=== PATIENT | female | born 1955 | race Caucasian/White ===

== ENCOUNTER → 2019-11-04 14:56 | Outpatient (BNVA) | payer MEDICARE, BC, SELFPAY | PROVIDERS: Family Provider Internal Medicine; PCP Nurse Practitioner; Visit Provider Nurse Practitioner | DX: E11.65 Type 2 diabetes mellitus with hyperglycemia (principal); Z79.4 Long term (current) use of insulin; K21.9 Gastro-esophageal reflux disease without esophagitis; L29.9 Pruritus, unspecified; R82.998 Other abnormal findings in urine | CPT/HCPCS: 80053; 81001; 83036; 84443; 87086 ==

== ENCOUNTER → 2020-03-12 09:20 | Outpatient (BNVA) | payer MEDICARE, BC, SELFPAY | PROVIDERS: Family Provider Internal Medicine; PCP Nurse Practitioner; Visit Provider Nurse Practitioner | DX: E11.65 Type 2 diabetes mellitus with hyperglycemia (principal); K21.9 Gastro-esophageal reflux disease without esophagitis; Z79.4 Long term (current) use of insulin; Z11.59 Encounter for screening for other viral diseases | CPT/HCPCS: 80053; 80061; 81000; 81003; 82044; 83036; 84443; 86803 ==

== ENCOUNTER 2020-04-06 08:42 | Outpatient (CLI) | payer MEDICARE, BC, SELFPAY ==
--- NOTE | 2020-04-06 08:53 | USCV_ITS ---
Cyndy Ly Age: 65 Gender: F : 1955 Exam Date: 04/06/2020 09:00 Ordering Phys: Sheryl Beckett Technologist: NANETTE BRANHAM Exam Location: [facility] [place] Indication: AORTA SCREENING HISTORY: Diameter (cm) AP x Transverse x Length Velocity (cm/s) Waveform Prox Aorta: 2.13 x 2.04 x 49.20 Mid Aorta: 1.47 x 1.80 x 58.00 Distal Aorta: 1.35 x 1.45 x 33.10 Right Iliac Prox: 0.73 x 0.97 x 65.40 Left Iliac Prox: 0.82 x 0.85 x 55.60 Stent Prox Landing x x Aneurysmal Sac Max x x Lt Lat Sac Dim Rt Lat Sac Dim Stent Dist Landing x x Right Iliac Stent x x Left Iliac Stent x x Right Renal Art Left Renal Art FINDINGS: CONCLUSIONS No evidence of abdominal aortic or bilateral iliac aneurysm. Chase De Leon MD (Electronically Signed) Final Date: 06 April 2020 09:54 S
--- NOTE | 2020-04-06 10:55 | XR_ITS ---
WS: [id number] DEXA (DUAL ENERGY X-RAY ABSORPTIOMETRY) Bone mineral density was performed using a [employer] machine. HISTORY: None. COMPARISON: None available. Lumbar spine BMD (L1-L4): 1.040 g/cm2 T score: -1.2 Z score: 0.1 Total hip BMD: Left: 0.892 g/cm2. T score: -0.9 Z score: 0.1 Right: 0.926 g/cm2. T score: -0.6 Z score: 0.3 10 year probability of a major osteoporotic fracture is 16%. XR/XR DEXA axial skeleton* [id number] IMPRESSION: OSTEOPENIA based upon the WHO classification for females.
== END 2020-04-06 08:43 | disposition home or self-care (01) ==
LOC: RAD 08:49
PROVIDERS: PCP Nurse Practitioner; Visit Provider Nurse Practitioner
DX: Z13.820 Encounter for screening for osteoporosis (principal); Z13.89 Encounter for screening for other disorder; M85.89 Other specified disorders of bone density and structure, multiple sites
CPT/HCPCS: 76706; 77080

== ENCOUNTER → 2020-06-01 09:22 | Outpatient (BNVA) | payer BC, MEDICARE, SELFPAY | PROVIDERS: PCP Nurse Practitioner; Visit Provider Nurse Practitioner Family | DX: Z11.59 Encounter for screening for other viral diseases (principal); J06.9 Acute upper respiratory infection, unspecified | CPT/HCPCS: 87635 ==

== ENCOUNTER → 2020-06-11 16:08 | Outpatient (BNVA) | payer BC, MEDICARE, SELFPAY | PROVIDERS: PCP Nurse Practitioner; Visit Provider Nurse Practitioner | DX: E11.65 Type 2 diabetes mellitus with hyperglycemia (principal); Z79.4 Long term (current) use of insulin; K21.9 Gastro-esophageal reflux disease without esophagitis | CPT/HCPCS: 80053; 83036 ==

== ENCOUNTER → 2020-08-24 14:47 | Outpatient (BNVA) | payer MEDICARE, BC, SELFPAY | PROVIDERS: PCP Nurse Practitioner; Visit Provider Nurse Practitioner | DX: E11.65 Type 2 diabetes mellitus with hyperglycemia (principal); Z79.4 Long term (current) use of insulin; K21.9 Gastro-esophageal reflux disease without esophagitis; H93.13 Tinnitus, bilateral | CPT/HCPCS: 80053; 83036 ==

== ENCOUNTER → 2020-11-16 13:59 | Outpatient (BNVA) | payer MEDICARE, BC, SELFPAY | PROVIDERS: PCP Nurse Practitioner; Visit Provider Nurse Practitioner Family | DX: E11.65 Type 2 diabetes mellitus with hyperglycemia (principal); Z79.4 Long term (current) use of insulin; K21.9 Gastro-esophageal reflux disease without esophagitis; R13.10 Dysphagia, unspecified; Z68.25 Body mass index [BMI] 25.0-25.9, adult | CPT/HCPCS: 80053; 80061; 83036; 85025 ==

== ENCOUNTER 2020-12-11 11:09 | Outpatient (CLI) | payer MEDICARE, BC, SELFPAY ==
--- NOTE | 2020-12-11 11:30 | FL_ITS ---
WS: [id number] MODIFIED BARIUM SWALLOW TECHNIQUE: Modified barium swallow with speech therapy using multiple consistencies. FLUOROSCOPY TIME: 2.8 minutes. CLINICAL INFORMATION: Dysphagia COMPARISON: None. FINDINGS: Multiple consistencies utilized. No evidence of aspiration or penetration. Mild pooling in the vallec anju which cleared with additional swallows. No difficulties with the barium tablet. Mild to moderate esophageal dysmotility is visualized. FL/FL barium swallow modifd [id number] IMPRESSION: 1. No evidence of aspiration or penetration. 2. Mild to moderate esophageal dysmotility is visualized in the thoracic esoph raffi. This can be further evaluated with esophagram
== END 2020-12-11 11:10 | disposition home or self-care (01) ==
LOC: RAD 11:15
PROVIDERS: PCP Nurse Practitioner; Visit Provider Otolaryngology
DX: R13.10 Dysphagia, unspecified (principal)
CPT/HCPCS: 74230; 92611

== ENCOUNTER → 2021-02-16 12:07 | Outpatient (BNVA) | payer MEDICARE, BC, SELFPAY | PROVIDERS: PCP Nurse Practitioner; Visit Provider Nurse Practitioner | DX: E11.65 Type 2 diabetes mellitus with hyperglycemia (principal); Z79.4 Long term (current) use of insulin; K21.9 Gastro-esophageal reflux disease without esophagitis; R41.3 Other amnesia | CPT/HCPCS: 80053; 81000; 83036; 84443 ==

== ENCOUNTER 2021-02-17 16:15 | Outpatient (CLI) | payer MEDICARE, BC, SELFPAY ==
--- NOTE | 2021-02-17 16:45 | MR_ITS ---
WS: [id number] MRI BRAIN WITHOUT CONTRAST HISTORY: R41.3 - Other amnesia COMPARISON: None available. TECHNIQUE: Diffusion imaging, multiplanar T1, T2 and FLAIR imaging obtained. No evidence for acute infarct or hemorrhage. Mike-white matter differentiation is normal. Very mild atrophy and mild chronic microvascular ischemic disease. There are a few scattered T2 and F LAIR signal hyperintensities in subcortical white matter. No abnormality in the ananth or infratentoria l brain. No prior infarct. No hemorrhage. Ventricles and extra-axial spaces are normal. No inferior displacement of cerebellar tonsils. The sella turcica and pituitary gland are unremarkabl e. Posterior fossa is also unremarkable. Dural venous sinuses and [place] demonstrate no abnormality on this unenhanced studies. Paranasal sinuses: Clear. Mastoid air cells: Normal. Calvarium and scalp: Intact. MR/MR head wo con* [id number] IMPRESSION: 1. No acute infarct, hemorrhage or mass. 2. Mild atrophy and mild chronic microvascular ischemic disease. No prior infa rcts.
== END 2021-02-17 16:16 | disposition home or self-care (01) ==
PROVIDERS: PCP Nurse Practitioner; Visit Provider Nurse Practitioner
DX: R41.3 Other amnesia (principal); G31.9 Degenerative disease of nervous system, unspecified; I67.82 Cerebral ischemia
CPT/HCPCS: 70551

== ENCOUNTER → 2021-05-27 09:28 | Outpatient (BNVA) | payer MEDICARE, BC, SELFPAY | PROVIDERS: PCP Nurse Practitioner; Visit Provider Nurse Practitioner | DX: E11.65 Type 2 diabetes mellitus with hyperglycemia (principal); Z79.4 Long term (current) use of insulin | CPT/HCPCS: 80053; 81000; 83036; 85025 ==

== ENCOUNTER → 2021-08-25 11:45 | Outpatient (BNVA) | payer MEDICARE, BC, SELFPAY | PROVIDERS: PCP Nurse Practitioner; Visit Provider Nurse Practitioner | DX: E11.65 Type 2 diabetes mellitus with hyperglycemia (principal); Z79.4 Long term (current) use of insulin; K21.9 Gastro-esophageal reflux disease without esophagitis; Z79.899 Other long term (current) drug therapy | CPT/HCPCS: 80053; 80061; 81000; 83036; 85025 ==

== ENCOUNTER → 2021-11-11 15:21 | Outpatient (BNVA) | payer MEDICARE, SELFPAY | PROVIDERS: PCP Nurse Practitioner; Visit Provider Nurse Practitioner | DX: E11.65 Type 2 diabetes mellitus with hyperglycemia (principal); Z79.4 Long term (current) use of insulin | CPT/HCPCS: 80053; 81000; 83036 ==

== ENCOUNTER → 2022-02-09 11:16 | Outpatient (BNVA) | payer MEDICARE, SELFPAY | PROVIDERS: PCP Nurse Practitioner; Visit Provider Nurse Practitioner | DX: E11.65 Type 2 diabetes mellitus with hyperglycemia (principal); K21.9 Gastro-esophageal reflux disease without esophagitis; Z12.39 Encounter for other screening for malignant neoplasm of breast; Z68.25 Body mass index [BMI] 25.0-25.9, adult; Z79.4 Long term (current) use of insulin | CPT/HCPCS: 80053; 80061; 81000; 83036; 84443; 85025 ==

== ENCOUNTER → 2022-05-04 09:45 | Outpatient (BNVA) | payer MEDICARE, SELFPAY | PROVIDERS: PCP Nurse Practitioner; Visit Provider Nurse Practitioner Family | DX: J02.9 Acute pharyngitis, unspecified (principal); Z11.52 Encounter for screening for COVID-19; U07.1 COVID-19 | CPT/HCPCS: 87071; 87426; 87880 ==

== ENCOUNTER → 2022-05-11 10:10 | Outpatient (BNVA) | payer MEDICARE, SELFPAY | PROVIDERS: PCP Nurse Practitioner; Visit Provider Nurse Practitioner | DX: E11.65 Type 2 diabetes mellitus with hyperglycemia (principal); Z79.4 Long term (current) use of insulin; K21.9 Gastro-esophageal reflux disease without esophagitis | CPT/HCPCS: 80053; 81003; 83036; 85025; 87077; 87086; 87184 ==

== ENCOUNTER → 2022-08-08 09:18 | Outpatient (BNVA) | payer MEDICARE, SELFPAY | PROVIDERS: PCP Nurse Practitioner; Visit Provider Nurse Practitioner | DX: E11.65 Type 2 diabetes mellitus with hyperglycemia (principal); Z79.4 Long term (current) use of insulin; K21.9 Gastro-esophageal reflux disease without esophagitis | CPT/HCPCS: 80053; 80061; 81000; 83036 ==

== ENCOUNTER → 2022-10-24 09:22 | Outpatient (BNVA) | payer MEDICARE, SELFPAY | PROVIDERS: PCP Nurse Practitioner; Visit Provider Nurse Practitioner | DX: E11.65 Type 2 diabetes mellitus with hyperglycemia (principal); Z79.4 Long term (current) use of insulin; K21.9 Gastro-esophageal reflux disease without esophagitis | CPT/HCPCS: 80053; 80061; 81000; 82043; 83036 ==

== ENCOUNTER → 2023-01-10 09:07 | Outpatient (BNVA) | payer MEDICARE, SELFPAY | PROVIDERS: PCP Nurse Practitioner; Visit Provider Nurse Practitioner | DX: E11.65 Type 2 diabetes mellitus with hyperglycemia (principal); Z79.4 Long term (current) use of insulin; E78.00 Pure hypercholesterolemia, unspecified | CPT/HCPCS: 80053; 80061; 83036 ==

== ENCOUNTER → 2023-01-16 09:09 | Outpatient (BNVA) | payer MEDICARE, SELFPAY | PROVIDERS: PCP Nurse Practitioner; Visit Provider Nurse Practitioner | DX: E11.65 Type 2 diabetes mellitus with hyperglycemia (principal); Z79.4 Long term (current) use of insulin; K21.9 Gastro-esophageal reflux disease without esophagitis; Z68.24 Body mass index [BMI] 24.0-24.9, adult; E78.00 Pure hypercholesterolemia, unspecified; Z12.31 Encounter for screening mammogram for malignant neoplasm of breast | CPT/HCPCS: 81000 ==

== ENCOUNTER 2023-04-05 10:50 | Outpatient (CLI) | payer MEDICARE, SELFPAY ==
--- NOTE | 2023-04-05 11:00 | MM_ITS ---
WS: [id number] BILATERAL SCREENING DIGITAL TOMOSYNTHESIS MAMMOGRAM WITH CAD HISTORY: Screening COMPARISON: 03/25/2022 and 08/15/2019 Bilateral CC and MLO views with tomosynthesis and synthetic mammography submitted. Computer aided det ection analyzed. Breast composition: The breasts are heterogeneously dense, which may obscure small masses. No suspici ous masses, microcalcifications or architectural distortion. Calcification RIGHT breast. There is an additional curvilinear density which may be a biopsy clip in the anterior RIGHT breast. MM/[place] [id number] IMPRESSION: BI-RADS: 2-Benign FOLLOW UP: 1 Year Follow-up
== END 2023-04-05 10:51 | disposition home or self-care (01) ==
LOC: RAD 10:55 → MOBLMAM 10:59
PROVIDERS: PCP Nurse Practitioner; Visit Provider Nurse Practitioner
DX: Z12.31 Encounter for screening mammogram for malignant neoplasm of breast (principal)
CPT/HCPCS: 77063; 77067; 81000

== ENCOUNTER → 2023-04-06 08:18 | Outpatient (BNVA) | payer MEDICARE, SELFPAY | PROVIDERS: PCP Nurse Practitioner; Visit Provider Nurse Practitioner | DX: E11.65 Type 2 diabetes mellitus with hyperglycemia (principal); Z79.4 Long term (current) use of insulin | CPT/HCPCS: 80053; 80061; 83036 ==

== ENCOUNTER → 2023-06-29 08:42 | Outpatient (BNVA) | payer MEDICARE, SELFPAY | PROVIDERS: PCP Nurse Practitioner; Visit Provider Nurse Practitioner | DX: E78.00 Pure hypercholesterolemia, unspecified (principal); E11.65 Type 2 diabetes mellitus with hyperglycemia; Z79.4 Long term (current) use of insulin | CPT/HCPCS: 80053; 80061; 83036 ==

== ENCOUNTER → 2023-09-28 09:22 | Outpatient (BNVA) | payer MEDICARE, SELFPAY | PROVIDERS: PCP Nurse Practitioner; Visit Provider Nurse Practitioner | DX: E78.00 Pure hypercholesterolemia, unspecified (principal); E11.65 Type 2 diabetes mellitus with hyperglycemia; Z79.4 Long term (current) use of insulin | CPT/HCPCS: 80053; 80061; 83036 ==

== ENCOUNTER → 2023-12-21 08:50 | Outpatient (BNVA) | payer MEDICARE, SELFPAY | PROVIDERS: PCP Nurse Practitioner; Visit Provider Nurse Practitioner | DX: E11.65 Type 2 diabetes mellitus with hyperglycemia (principal); Z79.4 Long term (current) use of insulin; E78.00 Pure hypercholesterolemia, unspecified | CPT/HCPCS: 80053; 80061; 83036; 85025 ==

== ENCOUNTER → 2024-03-25 09:05 | Outpatient (BNVA) | payer MEDICARE, SELFPAY | PROVIDERS: PCP Nurse Practitioner; Visit Provider Nurse Practitioner | DX: E11.65 Type 2 diabetes mellitus with hyperglycemia (principal); Z79.4 Long term (current) use of insulin | CPT/HCPCS: 80053; 80061; 83036; 85025 ==

== ENCOUNTER 2024-04-23 10:16 | Outpatient (CLI) | payer MEDICARE, SELFPAY ==
--- NOTE | 2024-04-23 10:20 | MM_ITS ---
WS: [id number] BILATERAL 3D TOMOSYNTHESIS DIGITAL SCREENING MAMMOGRAPHY WITH CAD CLINICAL INFORMATION: Z12.31 - Encounter for screening mammogram for malignant ... HISTORY: Screening mammogram. No current complaints. COMPARISON: 2022 TECHNIQUE: Bilateral CC and MLO views. FINDINGS: The breasts are composed of heterogeneous fibroglandular density tissue, which can limit the detectio n of small underlying mass lesions. No suspicious mass, asymmetry, calcifications, or architectural d istortion. No evidence of malignancy. Incidental punctate calcifications. Stable curvilinear metallic density subareolar RIGHT breast may resent prior biopsy clip. MM/[place] [id number] IMPRESSION: BI-RADS: 2-Benign FOLLOW UP: 1 Year Follow-up Recommend return to annual screening mammography.
== END 2024-04-23 10:17 | disposition home or self-care (01) ==
LOC: MOBLMAM 10:18
PROVIDERS: PCP Nurse Practitioner; Visit Provider Nurse Practitioner
DX: Z12.31 Encounter for screening mammogram for malignant neoplasm of breast (principal); R92.333 Mammographic heterogeneous density, bilateral breasts; R92.1 Mammographic calcification found on diagnostic imaging of breast
CPT/HCPCS: 77063; 77067

== ENCOUNTER → 2024-06-10 08:45 | Outpatient (BNVA) | payer MEDICARE, SELFPAY | PROVIDERS: PCP Nurse Practitioner; Visit Provider Nurse Practitioner | DX: Z79.4 Long term (current) use of insulin (principal); E11.9 Type 2 diabetes mellitus without complications; E11.65 Type 2 diabetes mellitus with hyperglycemia | CPT/HCPCS: 80053; 80061; 81000; 83036; 84443; 85025 ==

== ENCOUNTER → 2024-09-18 10:06 | Outpatient (BNVA) | payer MEDICARE, SELFPAY | PROVIDERS: PCP Nurse Practitioner; Visit Provider Nurse Practitioner | DX: E78.00 Pure hypercholesterolemia, unspecified (principal); E11.65 Type 2 diabetes mellitus with hyperglycemia; Z79.4 Long term (current) use of insulin | CPT/HCPCS: 80053; 80061; 83036 ==

== ENCOUNTER → 2024-12-12 08:45 | Outpatient (BNVA) | payer MEDICARE, SELFPAY | PROVIDERS: PCP Nurse Practitioner; Visit Provider Nurse Practitioner | DX: E11.9 Type 2 diabetes mellitus without complications (principal) | CPT/HCPCS: 80053; 80061; 83036 ==

== ENCOUNTER → 2025-03-06 08:29 | Outpatient (BNVA) | payer MEDICARE, SELFPAY | PROVIDERS: PCP Nurse Practitioner; Visit Provider Nurse Practitioner | DX: E11.9 Type 2 diabetes mellitus without complications (principal) | CPT/HCPCS: 80053; 80061; 83036; 85025 ==

== ENCOUNTER → 2025-03-10 09:58 | Outpatient (BNVA) | payer MEDICARE, SELFPAY | PROVIDERS: PCP Nurse Practitioner; Visit Provider Nurse Practitioner | DX: E11.65 Type 2 diabetes mellitus with hyperglycemia (principal); K59.01 Slow transit constipation; M77.8 Other enthesopathies, not elsewhere classified; Z79.4 Long term (current) use of insulin | CPT/HCPCS: 73080; 74018; 82043 ==

== ENCOUNTER 2025-05-20 13:55 | Outpatient (CLI) | payer MEDICARE, SELFPAY ==
--- NOTE | 2025-05-20 14:00 | MM_ITS ---
WS: [id number] BILATERAL 3D TOMOSYNTHESIS DIGITAL SCREENING MAMMOGRAPHY WITH CAD CLINICAL INFORMATION: SCREENING HISTORY: Screening mammogram. No current complaints. COMPARISON: 2023 TECHNIQUE: Bilateral CC and MLO views. FINDINGS: The breasts are composed of heterogeneous fibroglandular density tissue, which can limit the detection of small underlying mass lesions. No suspicious mass, asymmetry, calcifications, or architectural distortion. No evidence of malignancy. A few incidental punctate calcifications. Presumed biopsy clip anterior RIGHT breast unchanged MM/MM scr tomosynthesis [id number] IMPRESSION: DENSITY: The breasts are heterogeneously dense, which may obscure small masses. BI-RADS: 2 - Benign FOLLOW UP: 1 Year Follow-up Recommend return to annual screening mammography.
== END 2025-05-20 13:56 | disposition home or self-care (01) ==
LOC: MOBLMAM 13:59
PROVIDERS: PCP Nurse Practitioner; Visit Provider Nurse Practitioner
DX: Z12.31 Encounter for screening mammogram for malignant neoplasm of breast (principal); R92.333 Mammographic heterogeneous density, bilateral breasts; R92.323 Mammographic fibroglandular density, bilateral breasts; Z96.89 Presence of other specified functional implants; R92.1 Mammographic calcification found on diagnostic imaging of breast
CPT/HCPCS: 77063; 77067

== ENCOUNTER → 2025-05-29 09:01 | Outpatient (BNVA) | payer MEDICARE, SELFPAY | PROVIDERS: PCP Nurse Practitioner; Visit Provider Nurse Practitioner | DX: E11.9 Type 2 diabetes mellitus without complications (principal) | CPT/HCPCS: 80053; 80061; 83036 ==

== ENCOUNTER → 2025-08-25 09:43 | Outpatient (BNVA) | payer MEDICARE, SELFPAY | PROVIDERS: PCP Nurse Practitioner; Visit Provider Nurse Practitioner | DX: E11.9 Type 2 diabetes mellitus without complications (principal) | CPT/HCPCS: 80053; 80061; 83036; 85025 ==